=== PATIENT | female | born 1940 | race African-American/Black ===

== ENCOUNTER 2016-11-23 13:22 | Emergency (ER) | payer MEDICARE, MEDICAID ==
[2016-11-23 15:13] LABS: #Basophils 0.1 thou/uL (0.0-0.2); #Eosinphils 0.1 thou/uL (0.0-0.7); #Lymphocytes 2.1 thou/uL (1.20-3.40); #Monocytes 0.4 thou/uL (0.11-0.59); #Neutrophils 3.4 thou/uL (1.40-6.50); %Basophils 1.5 % (0.0-1.0); %Eosinophils 1.1 % (0.0-10.0); %Lymphocytes 35.1 % (21.0-51.0); %Monocytes 6.3 % (0.0-10.0); Mean Corpuscular HGB CONC 32.7 g/dL (32.0-36.0); Mean Corpuscular Hemoglobin 30.7 pg (27.0-31.0); Mean Corpuscular Volume 94.1 fl (81.0-99.0); Mean Platelet Volume 14.2 fL (7.4-10.4); Platelet Count 168 thou/uL (130-400); Red Blood Cell (RBC) Count 4.55 mill/uL (4.20-5.40)
[2016-11-23 15:14] LABS: Large Platelets SLIGHT; MDiff Complete? YES
--- NOTE | 2016-11-23 15:34 | CT ---
NECK CT WITH WITHOUT CONTRAST 11/23/16 CLINICAL HISTORY: Dysphagia, pharyngitis. FINDINGS: Mild prominence of the lingual tonsils is present. Scattered borderline size bilateral cervical peipto n lymph nodes are nonspecific. Mild heterogeneity of the thyroid gland without a discrete, dominant lesion. Predominant fatty replacement of the parotid glands. Submandibular glands are grossly unrema rkable. Epiglottis is normal in thickness. No abnormal edema of the prevertebral soft tissues of the neck. There is atherosclerotic vascular disease. Metallic clips of the right neck are present. Prom inent degenerative change and kyphosis involve the cervical spine. IMPRESSION: Limited evaluation of the neck soft tissues without IV contrast. No definite acute process is visual ized, with additional findings detailed above. POS: IAN
[2016-11-23] MEDS ORDERED: Acetaminophen/Codeine 30-300mg Tablet ONE (16:02)
[2016-11-23] MEDS ORDERED: Azithromycin 250 MG TAB ONE (16:02)
[2016-11-23] MEDS ORDERED: predniSONE 20 MG TAB ONE (16:02)
== END 2016-11-23 16:11 | disposition home or self-care (01) ==
LOC: EDBD 13:22 → MADERS 13:22
DX: I88.9 Nonspecific lymphadenitis, unspecified (principal); E11.9 Type 2 diabetes mellitus without complications; I10 Essential (primary) hypertension; Z79.899 Other long term (current) drug therapy
CPT/HCPCS: 36415; 70490; 84443; 85025; 86140; J7506

== ENCOUNTER 2017-01-04 07:38 | Outpatient (CLI) | payer MEDICARE, OTHER ==
[2017-01-04 08:22] LABS: Hemoglobin A1c 8.4 % (4.0-6.0)
[2017-01-04 08:33] LABS: ALT (SGPT) 37 U/L (0-55); AST (SGOT) 29 U/L (5-34); Albumin 3.8 g/dL (3.4-4.8); Alkaline Phosphatase 78 U/L (40-150); Anion Gap 14 mmol/L (10-20); BUN (Urea Nitrogen) 13 mg/dL (9.8-20.1); Bilirubin, Direct 0.1 mg/dL (0.1-0.3); Bilirubin, Total 0.3 mg/dL (0.2-1.2); Calc. Creatinine Clearance 0 mL/min (70-130); Calcium 8.9 mg/dL (7.8-10.44); Carbon Dioxide 25 mmol/L (23-31); Cardiac Risk 3.4 (Less than 4.5); Chloride 106 mmol/L (98-107); Cholesterol 148 mg/dL (< 200 Desired); Estimated GFR-MDRD 61; Glucose 163 mg/dL (83-110); HDL Cholesterol 43 mg/dL (>60 Neg Risk); LDL Cholesterol, Calculated 81 mg/dL; Potassium 4.2 mmol/L (3.5-5.1); Protein, Total 7.1 g/dL (5.8-8.1); Sodium 141 mmol/L (136-145)
[2017-01-04 09:20] LABS: Triglycerides 119 mg/dL (Less than 150)
== END 2017-01-04 07:39 ==
LOC: MADLABBHPM 07:38
PROVIDERS: ATTEND Family Medicine
DX: E11.9 Type 2 diabetes mellitus without complications (principal)
CPT/HCPCS: 36415; 80048; 80061; 80076; 83036